=== PATIENT | male | born 1980 | race Caucasian/White ===

== ENCOUNTER 2024-11-11 13:37 | Emergency (ER) | payer MEDICAID ==
[~2024-11-11] VITALS: Ht 177.8 cm; Wt 81.8 kg
[2024-11-11 13:46] VITALS: TEMP 98
[2024-11-11] MEDS: LIDOcaine 1% W/epiNEPHrine 1:100,000 20ml vial SQ ONE (14:28)
[2024-11-11] MEDS ORDERED: DOXY-1 PO (14:46)
[2024-11-11] MEDS ORDERED: SULF1TAB49 PO (14:46)
[2024-11-11] MEDS ORDERED: CEPH-585 PO (14:46)
[2024-11-11 15:09] VITALS: BP 128/79; PULSE 76; O2SAT 99
[2024-11-11 15:37] VITALS: RESP 14
== END 2024-11-11 15:06 ==
LOC: ER 13:38
DX: L03.116 Cellulitis of left lower limb (principal); L02.416 Cutaneous abscess of left lower limb; F17.200 Nicotine dependence, unspecified, uncomplicated; Z88.0 Allergy status to penicillin
CPT/HCPCS: 10060; 99283; A6449